=== PATIENT | female | born 1965 | race Caucasian/White ===

== ENCOUNTER 2018-03-10 09:58 | Emergency (ER) | payer MEDICARE, MEDICAID ==
[~2018-03-10] VITALS: Ht 157.5 cm; Wt 167.8 kg
[~2018-03-10 09:58] MED LIST: ALBU17AE3 IH; ASP325TEC PO; CLIN150C17 PO; FRSM40T PO; IBP200T PO; KCL10CCR PO; MULT1TAB63 PO; OMEP20CA12 PO; SIMV40TA2 PO; SULF1TAB38 PO
--- NOTE | 2018-03-10 10:52 | ED General ---
General Chief Complaint: Bite-Animal/Human/Insect Stated Complaint: SPIDER BITE Nursing Triage Note: PT AMB TO ROOM 5 W/O DIFFICULTY. A&OX4. CO INSECT BITE OBTAINED SUNDAY NOC. PT REORTS SHE BELIEVES IT TO BE A BROWN RECLUSE BITE TO HER RT FOREARM. REDNESS NOTED TO AREA. REPORTS SHE HAS HAD A BROWN RECLUSE BITE IN THE PAST ON HER LOWER RT ABD. REPORTS LETHARGY. REPORTS TO TAKING BENADRYL 25MG QDAY SINCE BITE OBTAINED. Nursing Sepsis Screen: No Definite Risk Source of Information: Patient Exam Limitations: No Limitations History of Present Illness Date Seen by Provider: Mar 10, 2018 Time Seen by Provider: 10:47 Initial Comments This 50-year-old white female presents after sustaining a spider bite to her right forearm last night while she was in bed. Patient has had similar spider bites in the past with severe sequelae. The spider bites that she has sustained an past have been from a brown recluse. Patient denies associated fever, chill, headache, stiff neck, photophobia, cough or shortness of breath, associated nausea vomiting or diarrhea. Patient's complaint of pain over the spider bite area which is located over the midportion of the lower aspect of the right forearm. Allergies and Home Medications Allergies Coded Allergies: No Known Allergies (Verified Allergy, Unknown, 06/29/08) Home Medications Albuterol 17 Gm Inh, 1 SPRAY IH UD, (Reported) Aspirin 325 Mg Tabec, 325 MG PO DAILY, (Reported) Clindamycin HCl 150 Mg Capsule, 450 MG PO TID Prescribed by: BONITA VALENCIA on 05/02/15 1426 Furosemide 40 Mg Tab, 40 MG PO DAILY PRN, (Reported) Ibuprofen 200 Mg Tab, 200 MG PO DAILY PRN, (Reported) Multivitamins 1 Ea Tablet, 1 TAB PO DAILY, (Reported) Omeprazole 20 Mg Capsule.dr, 2 CAP PO DAILY, (Reported) Potassium Chloride 10 Meq Capcr, 10 MEQ PO DAILY PRN, (Reported) TAKE WITH LASIX Simvastatin 40 Mg Tablet, 40 MG PO HS, (Reported) Trimethoprim/Sulfamethoxazole 1 Ea Tablet, 1 EA PO BID, (Reported) Patient Home Medication List Home Medication List Reviewed: Yes Review of Systems Constitutional: No chills, No fever, No malaise, No weakness EENTM: No hearing loss, No vision loss Respiratory: No cough, No short of breath Cardiovascular: No chest pain, No palpitations Gastrointestinal: No abdominal pain, No diarrhea, No nausea Genitourinary: no symptoms reported Musculoskeletal: no symptoms reported Skin: see HPI, other (there is an area of its approximately 4 cm in length which she demonstrates an erythematous slightly tender base suggestive of a spider bite.) Psychiatric/Neurological: No Symptoms Reported Hematologic/Lymphatic: No Symptoms Reported Immunological/Allergic: no symptoms reported Past Aohgzjj-Shwdwj-Mkquva Hx Past Med/Social Hx: Reviewed Nursing Past Med/Soc Hx Patient Social History Alcohol Use: Denies Use Recreational Drug Use: No Smoking Status: Never a Smoker 2nd Hand Smoke Exposure: No Recent Foreign Travel: No Contact w/Someone Who Travel: No Recent Infectious Disease Expo: No Recent Hopitalizations: No Physical Abuse: No Sexual Abuse: No Past Medical History Surgeries: No Respiratory: No Cardiac: Yes (NEGATIVE CARDIAC CATH) Neurological: No Reproductive Disorders: No Gastrointestinal: Yes Gastroesophageal Reflux Musculoskeletal: No Endocrine: Yes (THYROID) Diabetes, Non-Insulin dep Are Your Blood Sugars Over 250: No Cancer: No Psychosocial: Yes Nursing Suicide Risk Score: 0 Integumentary: No Blood Disorders: Yes Physical Exam Vital Signs Vital Signs - First Documented 03/10/18 10:04 Temp 98.1 Pulse 60 Resp 19 B/P (MAP) 150/79 (102) Pulse Ox 96 O2 Delivery Room Air O2 Flow Rate 0 Capillary Refill : Less Than 3 Seconds Height, Weight, BMI Height: 5'2.00" Weight: 370lbs. oz. 167.001361ts; BMI Method:Stated General Appearance: No Apparent Distress, WD/WN Eyes: Bilateral Eye Normal Inspection HEENT: Normal ENT Inspection Neck: Normal Inspection Respiratory: Lungs Clear Cardiovascular: Regular Rate, Rhythm Gastrointestinal: Normal Bowel Sounds, Non Tender, Soft Extremity: Normal Capillary Refill, Normal Inspection Neurologic/Psychiatric: Alert, Oriented x3, No Motor/Sensory Deficits Skin: Normal Color, Warm/Dry, Other (the right forearm demonstrates the linear erythema proximally 4 cm in length over the volar aspect of the midportion of the right forearm previously described. There is no ascending lymphedema. There is no central necrosis or eschar.) Progress/Results/Core Measures Suspected Sepsis Recent Fever Within 48 Hours: No Infection Criteria Present: None New/Unexplained Altered Menta: No Sepsis Screen: No Definite Risk SIRS Temperature:98.1 Pulse: 60 Respiratory Rate: 19 Blood Pressure 150 /79 Mean: 102 Results/Orders Vital Signs/I&O 03/10/18 10:04 Temp 98.1 Pulse 60 Resp 19 B/P (MAP) 150/79 (102) Pulse Ox 96 O2 Delivery Room Air O2 Flow Rate 0 Capillary Refill : Less Than 3 Seconds Blood Pressure Mean: 102 Progress Note : Time: 10:51 Progress Note The patient wanted oral antibiotics as well as some antibiotic ointment for the spider bite. Patient was placed at her request on Bactrim and mupirocin cream. I asked that she follow-up with Dr. Quick tomorrow. She was invited to return the emergency Department she had any further problems or questions. Ibuprofen and Tylenol for pain were recommended. Departure Impression Primary Impression: Spider bite wound Qualified Codes: T63.301A - Toxic effect of unspecified spider venom, accidental (unintentional), initial encounter Disposition: 01 HOME, SELF-CARE Condition: Unchanged Departure-Patient Inst. Decision time for Depature: 10:53 Referrals: LON QUICK DO (PCP/Family) Primary Care Physician Patient Instructions: Insect Bites and Stings (DC) Add. Discharge Instructions: Bactrim and mupirocin as prescribed. Close follow-up with Dr. Quick tomorrow. Return if any problems or questions. Ibuprofen or acetaminophen for pain if needed. All discharge instructions reviewed with patient and/or family. Voiced understanding. LAUREN DEVINE MD Mar 10, 2018 10:52
[2018-03-10 11:00] VITALS: BP 150/79
== END 2018-03-10 11:00 | disposition home or self-care (01) ==
LOC: EDUNIT# 09:58 → ER 10:01
DX: T63.301A Toxic effect of unspecified spider venom, accidental (unintentional), initial encounter (principal); K21.9 Gastro-esophageal reflux disease without esophagitis; E11.9 Type 2 diabetes mellitus without complications; Z79.82 Long term (current) use of aspirin
CPT/HCPCS: 99283

== ENCOUNTER 2019-03-03 21:47 | Emergency (ER) | payer MEDICARE, MEDICAID ==
[~2019-03-03] VITALS: Ht 157.5 cm; Wt 171.0 kg
--- OUTSIDE RECORDS SUMMARY | 2019-03-03 21:52 | XMS REPORT | Continuity of Care Document ---
Author Organization Unknown Address Unknown Allergies Active Description Code Type Severity Reaction Onset Reported/Identified Relationship to Patient Clinical Status Yes NKANo Known Allergies NKA Miscellaneous Allergy Unknown N/A 06/29/2008 Medications There is no data. Problems Date Dx Coded Attending Type Code Diagnosis Diagnosed By 08/27/2010 Ot 272.4 08/27/2010 Ot 278.00 08/27/2010 Ot 599.0 08/27/2010 Ot 786.59 08/27/2010 Ot V85.44 02/05/2015 GELLENDER DOLON Ot 627.1 03/03/2015 GELLENDER DOLON Ot 627.1 05/02/2015 GELLENDER DOLON Ot 627.1 05/02/2015 BONITA VALENCIA APRN Ot 682.2 CELLULITIS OF TRUNK 03/10/2018 GELLENDER LON SHETH Ot 627.1 POSTMENOPAUSAL BLEEDING 03/10/2018 LAUREN DEVINE MD Ot E11.9 TYPE 2 DIABETES MELLITUS WITHOUT COMPLIC 03/10/2018 LAUREN DEVINE MD Ot K21.9 GASTRO-ESOPHAGEAL REFLUX DISEASE WITHOUT 03/10/2018 LAUREN DEVINE MD Ot T63.301A TOXIC EFFECT OF UNSP SPIDER VENOM, ACCID 03/10/2018 LAUREN DEVINE MD Ot 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 Results There is no data. Encounters ACCT No. Visit Date/Time Discharge Status Pt. Type Provider Facility Loc./Unit Complaint [id number] 03/10/2018 10:01:00 03/10/2018 11:00:00 DIS Emergency LAUREN DEVINE MD [facility] ER SPIDER BITE [id number] 05/02/2015 13:25:00 05/02/2015 15:39:00 DIS Emergency BONITA VALENCIA APRN [facility] ER POSS SPIDER BITES [id number] 12/31/2014 10:21:00 12/31/2014 23:59:59 CLS Outpatient LON QUICK DO [facility] RAD POST MENOPAUSAL BLEEDING [id number] 08/24/2010 20:09:00 Document Registration
[2019-03-03 22:25] LABS: BILIRUBIN,URINE NEGATIVE (NEGATIVE); GLUCOSE, URINE (UA) NEGATIVE (NEGATIVE); KETONES,URINE NEGATIVE (NEGATIVE); LEUKOCYTE ESTERASE ,URINE 1+ (NEGATIVE); NITRITE,URINE NEGATIVE (NEGATIVE); PH,URINE 5 (5-9); PROTEIN,URINE NEGATIVE (NEGATIVE); UROBILINOGEN,URINE NORMAL (NORMAL)
[2019-03-03 22:26] LABS: COLOR,URINE YELLOW
[2019-03-03 22:32] LABS: CLARITY,URINE SL CLOUDY
[2019-03-03 22:33] LABS: BACTERIA,URINE TRACE /HPF; RBC,URINE RARE /HPF
[2019-03-03 22:39] LABS: BASOPHILS % (AUTO) 0 % (0-10); EOSINOPHILS # (AUTO) 0.4 10^3/uL (0.0-0.3); EOSINOPHILS % (AUTO) 4 % (0-10); HEMATOCRIT 48 % (35-52); HEMOGLOBIN 16.1 G/DL (11.5-16.0); LYMPHOCYTES # (AUTO) 3.8 X 10^3 (1.0-4.0); LYMPHOCYTES % (AUTO) 36 % (12-44); MEAN CORPUSCULAR HEMOGLOBIN 31 PG (25-34); MEAN CORPUSCULAR HGB CONC 34 G/DL (32-36); MEAN CORPUSCULAR VOLUME 91 FL (80-99); MEAN PLATELET VOLUME 9.9 FL (7.4-10.4); MONOCYTES # (AUTO) 0.7 X 10^3 (0.0-1.0); MONOCYTES % (AUTO) 7 % (0-12); NEUTROPHILS # (AUTO) 5.6 X 10^3 (1.8-7.8); NEUTROPHILS % (AUTO) 53 % (42-75); PLATELET COUNT 277 10^3/uL (130-400); RED CELL DISTRIBUTION WIDTH 14.2 % (10.0-14.5); WHITE BLOOD COUNT 10.5 10^3/uL (4.3-11.0)
[2019-03-03 22:58] LABS: ALBUMIN 3.9 GM/DL (3.2-4.5); BILIRUBIN,TOTAL 0.4 MG/DL (0.1-1.0); CALCIUM 9.8 MG/DL (8.5-10.1); CREATININE SERUM 1.03 MG/DL (0.60-1.30); POTASSIUM 4.1 MMOL/L (3.6-5.0); TOTAL PROTEIN 7.9 GM/DL (6.4-8.2)
[2019-03-03] MEDS ORDERED: KETOROLAC 30 MG/ML VIAL IVP ONE (23:15)
--- NOTE | 2019-03-03 23:33 | ED Abdominal Pain ---
General Chief Complaint: Abdominal/GI Problems Stated Complaint: R SIDE PAIN Nursing Triage Note: AMBULATORY TO ED ROOM 6 WITH C/O RUQ ABD PAIN X2 WEEKS, IT IS WORSE NOW AND RADIATING TO BACK. HAS NOT SEEN DR. QUICK FOR THIS. STATES ALSO HAS HAD SHADE COLORED STOOLS FOR A WHILE. TOOK TRAMADOL AT 1830. DENIES CP. Sepsis Screen: No Definite Risk Source of Information: Patient Exam Limitations: No Limitations History of Present Illness Date Seen by Provider: Mar 03, 2019 Time Seen by Provider: 21:49 Initial Comments This 53-year-old woman presents to the emergency room with complaints of right upper quadrant pain radiating to her back. She reports foul-smelling belching and light-colored stools. Symptoms are worse after eating fatty or greasy foods. She denies any nausea, vomiting or diarrhea. She has had some constipation in recent days. She reports sometimes having severe constipation. She took Ultram to manage her pain before coming to the ER which controlled her pain fairly well. Allergies and Home Medications Allergies Coded Allergies: No Known Allergies (Verified Allergy, Unknown, 06/29/08) Home Medications Albuterol 17 Gm Inh, 1 SPRAY IH UD, (Reported) Aspirin 325 Mg Tabec, 325 MG PO DAILY, (Reported) Clindamycin HCl 150 Mg Capsule, 450 MG PO TID Prescribed by: BONITA VALENCIA on 05/02/15 1426 Furosemide 40 Mg Tab, 40 MG PO DAILY PRN, (Reported) Ibuprofen 200 Mg Tab, 200 MG PO DAILY PRN, (Reported) Multivitamins 1 Ea Tablet, 1 TAB PO DAILY, (Reported) Omeprazole 20 Mg Capsule.dr, 2 CAP PO DAILY, (Reported) Potassium Chloride 10 Meq Capcr, 10 MEQ PO DAILY PRN, (Reported) TAKE WITH LASIX Simvastatin 40 Mg Tablet, 40 MG PO HS, (Reported) Trimethoprim/Sulfamethoxazole 1 Ea Tablet, 1 EA PO BID, (Reported) Patient Home Medication List Home Medication List Reviewed: Yes Review of Systems Review of Systems Constitutional: no symptoms reported EENTM: No Symptoms Reported Respiratory: No Symptoms Reported Cardiovascular: No Symptoms Reported Gastrointestinal: See HPI Genitourinary: No Symptoms Reported Musculoskeletal: no symptoms reported Skin: no symptoms reported Psychiatric/Neurological: No Symptoms Reported Endocrine: No Symptoms Reported Past Wmobqxk-Sgwocx-Xwkfkm Hx Past Med/Social Hx: Reviewed and Corrections made Patient Social History Alcohol Use: Denies Use Recreational Drug Use: No Smoking Status: Former Smoker 2nd Hand Smoke Exposure: No Recent Foreign Travel: No Contact w/Someone Who Travel: No Recent Infectious Disease Expo: No Recent Hopitalizations: No Seasonal Allergies Seasonal Allergies: No Past Medical History Surgeries: Yes (2 HEART CATHS-NO INTERVENTIONS) Respiratory: No Cardiac: Yes Neurological: No Reproductive Disorders: No Gastrointestinal: Yes (FATTY LIVER-NON ALCOHOLIC ) Gastroesophageal Reflux Musculoskeletal: No Endocrine: Yes (THYROID, MICHAEL DISEASE) Hypothyroidsim, Diabetes, Non-Insulin dep Cancer: No Psychosocial: Yes Integumentary: No Blood Disorders: Yes Physical Exam Vital Signs Vital Signs - First Documented 03/03/19 03/03/19 22:17 23:35 Temp 99.5 Pulse 98 Resp 18 B/P (MAP) 156/90 (112) Pulse Ox 100 Capillary Refill : Less Than 3 Seconds Height/Weight/BMI Height: 5'2.00" Weight: 377lbs. 0oz. 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 II-XII nml as tested, no motor/sensory deficits, alert, normal mood/affect, oriented x 3 Skin: normal color, warm/dry Progress/Results/Core Measures Results/Orders Lab Results Laboratory Tests Test 03/03/19 22:16 03/03/19 22:25 Range/Units Urine Color YELLOW Urine Clarity SL CLOUDY Urine pH 5 5-9 Urine Specific Brutus 1.020 1.016-1.022 Urine Protein NEGATIVE NEGATIVE Urine Glucose (UA) NEGATIVE NEGATIVE Urine Ketones NEGATIVE NEGATIVE Urine Nitrite NEGATIVE NEGATIVE Urine Bilirubin NEGATIVE NEGATIVE Urine Urobilinogen NORMAL NORMAL MG/DL Urine Leukocyte Esterase 1+ H NEGATIVE Urine RBC (Auto) 1+ H NEGATIVE Urine RBC RARE /HPF Urine WBC 2-5 /HPF Urine Squamous Epithelial Cells 10-25 H /HPF Urine Crystals NONE /LPF Urine Bacteria TRACE /HPF Urine Casts NONE /LPF Urine Mucus NEGATIVE /LPF Urine Culture Indicated NO White Blood Count 10.5 4.3-11.0 10^3/uL Red Blood Count 5.26 4.35-5.85 10^6/uL Hemoglobin 16.1 H 11.5-16.0 G/DL Hematocrit 48 35-52 % Mean Corpuscular Volume 91 80-99 FL Mean Corpuscular Hemoglobin 31 25-34 PG Mean Corpuscular Hemoglobin Concent 34 32-36 G/DL Red Cell Distribution Width 14.2 10.0-14.5 % Platelet Count 277 130-400 10^3/uL Mean Platelet Volume 9.9 7.4-10.4 FL Neutrophils (%) (Auto) 53 42-75 % Lymphocytes (%) (Auto) 36 12-44 % Monocytes (%) (Auto) 7 0-12 % Eosinophils (%) (Auto) 4 0-10 % Basophils (%) (Auto) 0 0-10 % Neutrophils # (Auto) 5.6 1.8-7.8 X 10^3 Lymphocytes # (Auto) 3.8 1.0-4.0 X 10^3 Monocytes # (Auto) 0.7 0.0-1.0 X 10^3 Eosinophils # (Auto) 0.4 H 0.0-0.3 10^3/uL Basophils # (Auto) 0.0 0.0-0.1 10^3/uL Sodium Level 142 135-145 MMOL/L Potassium Level 4.1 3.6-5.0 MMOL/L Chloride Level 105 98-107 MMOL/L Carbon Dioxide Level 23 21-32 MMOL/L Anion Gap 14 5-14 MMOL/L Blood Urea Nitrogen 15 7-18 MG/DL Creatinine 1.03 0.60-1.30 MG/DL Estimat Glomerular Filtration Rate 56 BUN/Creatinine Ratio 15 Glucose Level 159 H 70-105 MG/DL Calcium Level 9.8 8.5-10.1 MG/DL Corrected Calcium 9.9 8.5-10.1 MG/DL Total Bilirubin 0.4 0.1-1.0 MG/DL Aspartate Amino Transf (AST/SGOT) 55 H 5-34 U/L Alanine Aminotransferase (ALT/SGPT) 66 H 0-55 U/L Alkaline Phosphatase 99 40-136 U/L C-Reactive Protein High Sensitivity 1.05 H 0.00-0.50 MG/DL Total Protein 7.9 6.4-8.2 GM/DL Albumin 3.9 3.2-4.5 GM/DL Lipase 27 8-78 U/L My Orders Orders - COLBY ROY MD Cbc With Automated Diff (03/03/19 21:49) Comprehensive Metabolic Panel (03/03/19 21:49) Lipase (03/03/19 21:49) Ua Culture If Indicated (03/03/19 21:49) Ed Iv/Invasive Line Start (03/03/19 21:49) Hs C Reactive Protein (03/03/19 22:45) Ketorolac Injection (Toradol Injection) (03/03/19 23:15) Iv Push Telephone Diaphragm Assembler Ed (03/03/19 ) Medications Given in ED Vital Signs/I&O 03/03/19 03/03/19 22:17 23:35 Temp 99.5 99.5 Pulse 98 89 Resp 18 18 B/P (MAP) 156/90 (112) 146/86 (106) Pulse Ox 100 Blood Pressure Mean: 112 Progress Progress Note : Progress Note There were no major concerns with patient's lab assessment. Ultrasound was arranged for the following morning for further evaluation. Departure Impression Primary Impression: Right upper quadrant pain Disposition: HOME, SELF-CARE Condition: Improved Departure-Patient Inst. Decision time for Depature: 23:30 Referrals: LON QUICK DO (PCP/Family) Primary Care Physician Patient Instructions: Acute Abdomen (Belly Pain), Adult (DC) Add. Discharge Instructions: Clear liquid diet only and then nothing to eat or drink after 01:30. Return to the hospital at 07:30 for an ultrasound of your gallbladder. Bring your order form with you. Stay at the hospital until your results are reviewed with Dr. Fairbanks in the emergency room. You may continue to take your Ultram (tramadol) as well as Tylenol (acetaminophen) up to 1000 mg every 6 hours as needed. Return to the emergency room if symptoms are worsening in the meantime. All discharge instructions reviewed with patient and/or family. Voiced understanding. COLBY ROY MD Mar 03, 2019 23:33
[2019-03-03 23:35] VITALS: BP 146/86
== END 2019-03-03 23:37 | disposition home or self-care (01) ==
LOC: EDUNIT# 21:47 → ER 21:48
DX: R10.11 Right upper quadrant pain (principal); K21.9 Gastro-esophageal reflux disease without esophagitis; E03.9 Hypothyroidism, unspecified; E11.9 Type 2 diabetes mellitus without complications; E06.3 Autoimmune thyroiditis; Z79.82 Long term (current) use of aspirin; Z87.891 Personal history of nicotine dependence; Z95.9 Presence of cardiac and vascular implant and graft, unspecified
CPT/HCPCS: 36415; 80053; 81000; 83690; 85025; 86141; 96374

== ENCOUNTER → 2019-03-04 | Outpatient (CLI) | payer MEDICARE, MEDICAID ==
--- NOTE | 2019-03-04 08:41 | Diagnostic Imaging Report ---
INDICATION: Right upper quadrant pain. FINDINGS: There is some air within the left abdominal and flank small bowel which is borderline ectatic at about 2.5 cm. The colon is not pathologically distended. No abnormal fecal loading. No dilatation of the stomach. The left pelvic calcification is believed a phlebolith. IMPRESSION: Borderline air ectasia of the left abdominal small bowel; otherwise, unremarkable bowel gas pattern. No definite acute abnormality. Dictated by: Dictated on workstation # [id number]
--- NOTE | 2019-03-04 13:42 | Diagnostic Imaging Report ---
PROCEDURE: US Gallbladder. TECHNIQUE: Multiple real-time grayscale images were obtained over the right upper quadrant in various projections. INDICATION: Right upper quadrant pain. COMPARISON: None available. FINDINGS: Exam is mildly limited due to patient's large body habitus. The liver has marked diffuse increased echogenicity with poor through sound transmission. This limits assessment for focal hepatic lesion. The main portal vein appears patent with normal direction of flow. The liver is potentially enlarged measuring approximately 25 cm. The gallbladder is distended without gallstones, wall thickening, or pericholecystic fluid. The common bile duct is not visualized. Pancreas is obscured by overlying bowel gas. No right upper quadrant ascites. The right kidney is normal in size. No hydronephrosis, shadowing calculi, or suspicious mass lesion. IMPRESSION: 1. Examination is mildly compromised by patient's body habitus. Allowing for this, the liver appears enlarged and with diffuse hepatic steatosis. 2. No gallstones. Dictated by: Dictated on workstation # [id number]
== END ==
LOC: RAD 07:06
PROVIDERS: ATTEND Family Medicine
DX: K63.89 Other specified diseases of intestine (principal); R10.11 Right upper quadrant pain
CPT/HCPCS: 74018; 76705